=== PATIENT | female | born 1980 | race Caucasian/White ===

== ENCOUNTER 2018-08-10 07:39 | Emergency (ER) | payer OTHER ==
--- NOTE | 2018-08-10 09:01 | UC ---
Throat Pain/Nasal Tyson HPI - HPI Summary HPI Summary: 38 yo female presents with left facial swelling. She tells me that on 08/07 she developed left ear pain and left sinus pain/pressure/congestion. She had some keflex at home left over from an old prescription and took this for 2 days. On and 08/09 noticed swelling to her left cheek that was worse this morning. Painful to touch near her nose on the left. No more sinus congestion or ear pain. She is eating and drinking well. Has been taking ibuprofen and applying ice to the area with mild relief. Denies fever, chills, illicit drug use, nasal sprays, or having symptoms like this in the past. - History of Current Complaint Chief Complaint: UCRespiratory Stated Complaint: FACE SWELLING Time Seen by Provider: 08/10/18 09:01 Hx Obtained From: Patient Hx Last Menstrual Period: 07/18/18 Onset/Duration: Gradual Onset Severity: Moderate Pain Intensity: 5 Pain Scale Used: 0-10 Numeric - Allergies/Home Medications Allergies/Adverse Reactions: Allergies Allergy/AdvReac Type Severity Reaction Status Date / Time Penicillins Allergy Swelling Verified 08/10/18 07:54 Sulfa (Sulfonamide Allergy Rash Verified 08/10/18 07:54 Antibiotics) Home Medications: Home Medications Ibuprofen TAB* [Advil TAB*] 200 mg PO Q6H PRN 08/10/18 [History Confirmed ] PMH/Surg Hx/FS Hx/Imm Hx - Additional Past Medical History Additional PMH: None - Surgical History Surgical History: None - Family History Known Family History: Positive: None - Social History Occupation: Employed Full-time Lives: With Family Alcohol Use: Occasionally Substance Use Type: None Smoking Status (MU): Former Smoker When Did the Patient Quit Smoking/Using Tobacco: 1 yr Review of Systems All Other Systems Reviewed And Are Negative: Yes Constitutional: Positive: Negative Skin: Positive: Other - Swelling left maxillary Eyes: Positive: Negative ENT: Positive: Ear Ache, Sinus Congestion Respiratory: Positive: Negative Cardiovascular: Positive: Negative Gastrointestinal: Positive: Negative Neurovascular: Positive: Negative Neurological: Positive: Negative Psychological: Positive: Negative Physical Exam - Summary Physical Exam Summary: GENERAL: NAD. WDWN. No pain distress. SKIN: Overlying the skin of the left maxillary sinus there is mild edema and approx 1.0cm area of fluctuance with TTP. No induration or open wound. No warmth. Edema mildly extending inferiorally. No perioribital edema or parotid edema. HEENT: Head: As above Eyes: EOM intact. Conjunctiva clear without inflammation or discharge. Ears: Hearing grossly normal. TMs intact, no bulging, erythema, or edema. Nose: Nasal mucosa pink and moist without edema. Throat: Posterior oropharynx without exudates, erythema, or tonsillar enlargement. Uvula midline. NECK: Supple. Nontender. No lymphadenopathy. CHEST: CTAB. No r/r/w. No accessory muscle use. Breathing comfortably and in no distress. CV: RRR. Without m/r/g. Pulses intact. Cap refill <2seconds NEURO: Alert. PSYCH: Age appropriate behavior. Triage Information Reviewed: Yes Vital Signs: Initial Vital Signs Temp 98.3 F 08/10/18 07:49 Pulse 91 08/10/18 07:49 Resp 16 08/10/18 07:49 BP 139/85 08/10/18 07:49 Pulse Ox 100 08/10/18 07:49 Vital Signs Reviewed: Yes Throat Pain/Nasal Course/Dx - Course Course Of Treatment: CT: IMPRESSION: Mild superficial soft tissue swelling overlying the left maxilla. Suspect cellulitis vs skin abscess. Will start her on clindamycin and advised to keep applying ice and taking ibuprofen. If symptoms worsen, she develops a fever, or do not improve within 2 days to be rechecked. - Differential Dx/Diagnosis Provider Diagnosis: Facial cellulitis Discharge - Sign-Out/Discharge Documenting (check all that apply): Patient Departure All imaging exams completed and their final reports reviewed: Yes - Discharge Plan Condition: Stable Disposition: HOME Prescriptions: Clindamycin Cap(NF) [Clindamycin Cap 300 mg Cap(NF)] 300 mg PO TID #21 cap Patient Education Materials: Cellulitis (DC) Referrals: Michelle Ruiz DO [Primary Care Provider] - Additional Instructions: If you develop a fever, shortness of breath, chest pain, new or worsening symptoms - please call your PCP or go to the ED. Your blood pressure was high at todays visit. Please see your primary provider within 4 weeks for recheck and re-evaluation. Apply ice to your area of swelling. If the area continues to swell or if you develop a fever or worsening symptoms - please be rechecked - Billing Disposition and Condition Condition: STABLE Disposition: Home - Attestation Statements Provider Attestation: Per institutional requirements, I have reviewed the chart, however, I was not consulted specifically or made aware of this patient by the midlevel provider. I did not personally evaluate, interact with , or disposition this patient.
[2018-08-10 10:11] VITALS: BP 140/81
== END 2018-08-10 10:08 | disposition home or self-care (01) ==
LOC: UCEAST 07:39
DX: L03.211 Cellulitis of face (principal); Z88.0 Allergy status to penicillin; Z88.2 Allergy status to sulfonamides; Z87.891 Personal history of nicotine dependence
CPT/HCPCS: 70486; 99212; G0463

== ENCOUNTER 2018-08-28 15:15 | Emergency (ER) | payer OTHER ==
[2018-08-28 15:24] VITALS: BP 151/89
--- NOTE | 2018-08-28 16:26 | UC ---
General HPI - HPI Summary HPI Summary: Pleasant 38 yo female presents for eval / tx L maxillary region. Today c/o headache, feeling generally bad, and this afternoon face became very flushed. H /a better, face no longer flushed. But c/o puffy, redness left maxillary sinus region. Tooth hurts a little too, but not primary pain c/o. Had dental work approx 1 year ago in that area, but no recent issues other than baseline sensitivity. Fever? She was seen in [facility] last month (see [facility]) for L check redness / swelling / tenderness. Rx clindamycin x 7 dyas - improved. CT scan noncont in [facility] noted. - History of Current Complaint Chief Complaint: UCGeneralIllness Stated Complaint: FACE FEELS HOT AND HEADACHE Time Seen by Provider: 08/28/18 16:13 Hx Obtained From: Patient Hx Last Menstrual Period: 08/21/18 Pain Intensity: 6 - Allergy/Home Medications Allergies/Adverse Reactions: Allergies Allergy/AdvReac Type Severity Reaction Status Date / Time Penicillins Allergy Swelling Verified 08/28/18 15:24 Sulfa (Sulfonamide Allergy Rash Verified 08/28/18 15:24 Antibiotics) PMH/Surg Hx/FS Hx/Imm Hx Previously Healthy: Yes - a few years ago, + swelling L knee etiology unk - Surgical History Surgical History: None - Family History Known Family History: Positive: None - Social History Alcohol Use: Occasionally Substance Use Type: None Smoking Status (MU): Former Smoker When Did the Patient Quit Smoking/Using Tobacco: 1 yr Review of Systems All Other Systems Reviewed And Are Negative: Yes Constitutional: Positive: Other - see hpi Skin: Positive: Other - see hpi Eyes: Positive: Negative, Other - see hpi ENT: Positive: Other - see hpi Respiratory: Positive: Other - see hpi Cardiovascular: Positive: Other - see hpi Gastrointestinal: Positive: Other - see hpi Motor: Positive: Other - see hpi Neurovascular: Positive: Other - see hpi Musculoskeletal: Positive: Other: - see hpi Neurological: Positive: Other - see hpi Psychological: Positive: Negative Is Patient Immunocompromised?: No Physical Exam Triage Information Reviewed: Yes Appearance: Well-Appearing, Well-Nourished - sitting up, conversing easily and appropriately. Looks tired, but NAD, nontoxic general appearance. Vital Signs: Initial Vital Signs Temp 99.4 F 08/28/18 15:20 Pulse 87 08/28/18 15:20 Resp 18 08/28/18 15:20 BP 151/89 08/28/18 15:20 Pulse Ox 96 08/28/18 15:20 Vital Signs Reviewed: Yes Eye Exam: Normal ENT: Positive: Pharynx normal, TMs normal, Other - Tender L ant max area, mild swelling (puffy). Mild red, not hot to touch. Dentition without gross abnormalities. Gingiva without swelling, fluctuance. Neck exam: Normal Neck: Positive: Supple, Nontender, No Lymphadenopathy Respiratory Exam: Normal Respiratory: Positive: Chest non-tender, Lungs clear, Normal breath sounds, No respiratory distress, No accessory muscle use Cardiovascular Exam: Normal Cardiovascular: Positive: RRR, No Murmur, Pulses Normal, Brisk Capillary Refill Abdominal Exam: Normal Abdomen Description: Positive: Nontender Musculoskeletal Exam: Normal - gait stedy, moves x 4 ext's Neurological Exam: Normal - grossly nonfocal. CN's intact,w/o c/o smell issues. Psychological Exam: Normal - conversing easily and appropriately Skin Exam: Normal - other than as noted above, no vis or reported rash. Nondiaphoretic. Course/Dx - Course Course Of Treatment: [place] [facility] [place], incl CT report. Will check blood work. May need further imaging, pt will f/u with PCP call Friday. Meanwhile if worse or new issues, will go to the ED. Reviewed BP - Ms. Hung reports that BP goes up when she feels bad or sick. She will f/u with pcp for bp recheck as well. Will restart clindamycin (rx 2 weeks, unless otherwise advised by pcp). Differential includes albeit not limited to cellulitis, abscess, dental issues, sinusitis, immune disorder. Questions as posed answered to the best of my ability. - Diagnoses Provider Diagnosis: Sinusitis, Facial swelling Discharge - Sign-Out/Discharge Documenting (check all that apply): Patient Departure All imaging exams completed and their final reports reviewed: No Studies - Discharge Plan Condition: Stable Disposition: HOME Prescriptions: Clindamycin Cap(NF) [Clindamycin Cap 300 mg Cap(NF)] 300 mg PO TID 14 Days cap Patient Education Materials: Sinusitis (ED) Referrals: Michelle Ruiz DO [Primary Care Provider] - Additional Instructions: Please follow up with your primary care physician early next week. Seek medical attention for worse or new problems in the meantime. - Billing Disposition and Condition Condition: STABLE Disposition: Home
[2018-08-29 10:13] LABS: ABS Basophils 0.1 10^3/ul (0-0.2); ABS Eosinophils 0.1 10^3/ul (0-0.6); ABS Lymphocytes 2.1 10^3/ul (1.0-4.8); ABS Monocytes 0.5 10^3/ul (0-0.8); ABS Neutrophils 7.1 10^3/ul (1.5-7.7); ABS Nucleated RBC 0 10^3/ul; Eosinophil % 1.1 %; Hematocrit 43 % (35-47); Hemoglobin 14.7 g/dl (12.0-16.0); Lymphocyte % 21.3 %; Mean Corpuscular HGB Conc 34 g/dl (31-36); Mean Corpuscular Hemoglobin 30 pg (27-31); Mean Corpuscular Volume 88 fL (80-97); Mean Platelet Volume 9.5 fL (7.4-10.4); Nucleated Red Blood Cells % 0.1; Platelet Count 204 10^3/ul (150-450); Red Cell Distribution Width 13 % (10.5-15); White Blood Count 9.9 10^3/ul (3.5-10.8)
[2018-08-29 10:19] LABS: Albumin 4.5 g/dL (3.2-5.2); Calcium 9.5 mg/dL (8.6-10.3); Magnesium 2.2 mg/dL (1.9-2.7); Total Bilirubin 0.6 mg/dL (0.2-1.0)
[2018-08-29 10:26] LABS: Albumin/Globulin Ratio 1.6 (1-3); BUN/Creatinine Ratio 17.2 (8-20); C Reactive Protein 3.64 mg/L (<8.01); EGFR African American 89.1 (>60); EGFR Non-African American 73.7 (>60); Globulin 2.9 g/dL (2-4); Total Protein 7.4 g/dL (6.4-8.9)
[2018-08-29 19:14] LABS: Erythrocyte Sed Rate 7 mm/Hr (0-20)
== END 2018-08-28 17:23 | disposition home or self-care (01) ==
LOC: UCEAST 15:15
DX: J32.9 Chronic sinusitis, unspecified (principal); R22.0 Localized swelling, mass and lump, head; Z88.0 Allergy status to penicillin; Z88.2 Allergy status to sulfonamides; Z87.891 Personal history of nicotine dependence
CPT/HCPCS: 36415; 80053; 83735; 85025; 85652; 86140; 99212; G0463